=== PATIENT | male | born 1935 | race Caucasian/White ===

== ENCOUNTER → 2017-10-29 | Outpatient (CLI) | payer MEDICARE ==
[~2017-10-29] MED LIST: LIDOCAINE 2%/EPI 1:100,000 20 ML VIAL. IJ
== END | disposition home or self-care (01) ==
LOC: US 13:16
DX: E04.1 Nontoxic single thyroid nodule (principal)
CPT/HCPCS: 10022; 60300; 76942

== ENCOUNTER 2018-05-11 09:46 | Day surgery (SDC) | payer MEDICARE ==
[~2018-05-11] VITALS: Ht 180.3 cm; Wt 88.5 kg
[~2018-05-11 09:46] MED LIST changes: +AMLO10TA6 PO; +ASPI325T8 PO; +ATORVASTATIN CA80 MG PO; +BUPIVAC MPF-EPI 0.5%-1:200000 30 ML VIAL. ONE; +CLOP75TA PO; +FINA5TAB4 PO; +HYDR-2680 PO; +HYDROmorphone 2 MG/ML VIAL IV PRN; +IV RINGERS,LACTATED 1000ML 1,000 ML IV SCH; +LEVO50TA5 PO; +LIDOCAINE 1% PF 2 ML VIAL. ID PRN; -LIDOCAINE 2%/EPI 1:100,000 20 ML VIAL. IJ; +LISI-130 PO; +LISI-334 PO; +LISI1TAB5 PO; +METF500T16 PO; +METO25TA4 PO; +MORPHINE SULFATE 2 MG/ML VIAL. IV PRN; +NIAC500T PO; +OMEG-32 PO; +ONDANSETRON PF 4 MG/2 ML VIAL. IV PRN; +PROCHLORPERAZINE 10 MG/2 ML VIAL. IV PRN; +TERA10CA3 PO; +TERA5CAP3 PO; +VIT1TABL32 PO; +fentaNYL PF VIAL 100 MCG/2 ML VIAL IV PRN
[2018-05-11] MEDS ORDERED: SUCCINYLCHOLINE 200 MG/10 ML VIAL. ONE (12:14)
[2018-05-11] MEDS ORDERED: PROPOFOL 20 ML IV ONE (12:15)
[2018-05-11] MEDS ORDERED: SEVOFLURANE 16 TO 30 MINUTES. IH ONE (12:15)
[2018-05-11] MEDS ORDERED: ONDANSETRON PF 4 MG/2 ML VIAL. ONE (12:15)
[2018-05-11] MEDS ORDERED: DEXAMETHASONE SOD PHOS 20 MG/5 ML VIAL. ONE (12:15)
[2018-05-11] MEDS ORDERED: CHLORHEXIDINE 0.12% 15 ML MOUTHWASH. SWSP ONE (12:45)
--- NOTE | 2018-05-11 13:09 | PDOC4 ---
OPERATIVE NOTE Date: Date: May 11, 2018 Pre-Op Diagnosis: hyperkeratosis right soft palate Post-Op Diagnosis: hyperkeratosis right soft palate Procedure Performed: biopsy of right soft palate hyperkeratosis Surgeon: nory Anesthesia Type: BUD Blood Loss: <10ml Specimans Obtained: right soft palatal mucosa permanent specimen Findings: see dictation Complications: none Operative Note: biopsy of hyperkeratosis right soft palate closed with 3/0 CG BENJI AMBROSE DMD May 11, 2018 13:09
[2018-05-11 14:36] VITALS: BP 154/68
--- NOTE | 2018-05-11 18:50 | OP ---
DATE OF SURGERY: 05/11/2018 OPERATING SURGEON: Jimmie Ambrose DMD OPERATING SERVICE: technology architect. PREOPERATIVE DIAGNOSIS: Right soft palate hyperkeratosis. POSTOPERATIVE DIAGNOSIS: Right soft palate hyperkeratosis. PROCEDURES PERFORMED: Incision and biopsy of hyperkeratotic right palatal mucosa. BRIEF HISTORY: The patient was referred to our clinic by Dr. Merlos for evaluation of the right hyperkeratotic lesion on his right soft palate. It was approximately 6 x 6 mm in size. This lesion was located too far posteriorly to accommodate biopsy of this lesion under local anesthetic given his multiple comorbidities. The plan was for this biopsy to occur in the OR under anesthesia. A permit was obtained. The patient was scheduled for surgery. ESTIMATED BLOOD LOSS: Less than 5 mL. DRAINS PLACED: None. COMPLICATIONS: None. SPECIMEN SENT: One specimen for permanent evaluation was the right soft palate mucosa. DESCRIPTION OF PROCEDURE: After the history and physical was updated in the preoperative holding area, the patient was transported by the Anesthesia Service to the operating suite, placed in the supine position. General anesthesia was induced. An LMA was placed and secured. Moistened throat pack was placed. The surgery began with the administration of approximately 8 mL of 0.5% Marcaine with 1:200,000 epinephrine. Time was allowed for the anesthesia to take effect. A surgical timeout was performed. The surgery began with the #15 blade where a mucosal ellipse type incision was employed to excise the mucosa that was hyperkeratotic in the right soft palate. This was then reapproximated with primary closure with multiple interrupted 3-0 chromic gut sutures without complication. The area was found to be hemostatic. At this point, the oral cavity was lavaged. Moistened throat pack was removed and the patient was then returned to the care of anesthesia where he was awakened and the LMA was removed without complication. The patient was recovered in the OR, transported to the PACU in stable condition. JIMMIE AMBROSE DMD DR: JONATHON/jarred JOB#: [id number] / [id number]
--- NOTE | 2018-05-13 13:09 | PATHOLOGY ---
[facility] Accession Number: [id number] . 01 Material submitted: . RIGHT HYPERKERATOSIS SOFT PALATE . 01 Clinical history: . Hyperkeratosis of right soft palate . 02 Diagnosis: Soft palate, biopsy: - Squamous epithelium with hyperkeratosis and parakeratosis. ([facility]; 05/13/2018) QMS/05/13/2018 . 02 Electronically signed: . Gene Mayo MD, Pathologist NPI- [id number] . 01 Gross description: . Received in formalin labeled "Salvador Esposito, right hyperkeratosis soft palate," is an irregular segment of epithelial-covered soft tissue measuring 0.7 x 0.4 x 0.2 cm in greatest dimensions. The epithelial surface is irregularly contoured and pale white-mariee in appearance. The surgical margin is inked, and the specimen is bisected and submitted entirely in cassette A1. ([facility]; 05/12/2018) XDC/XDC . 02 Pathologist provided ICD-10: L85.8 . 02 CPT . 043661 Specimen Comment: A courtesy copy of this report has been sent to Specimen Comment: [phone], . Specimen Comment: Report sent to / DR ALONSO Performed at: 01 [facility] [address], [place] [id number] MD Gamal Greer MD Phone: [phone] Performed at: 02 [facility] [address] [place], [place] [id number] MD Alexander Ramires MD Phone: [phone]
== END 2018-05-11 15:03 | disposition home or self-care (01) ==
LOC: SURG 09:46
PROVIDERS: ATTEND Dentist Oral and Maxillofacial Surgery
DX: K13.79 Other lesions of oral mucosa (principal); E03.9 Hypothyroidism, unspecified; G47.33 Obstructive sleep apnea (adult) (pediatric); I10 Essential (primary) hypertension; E11.9 Type 2 diabetes mellitus without complications; N40.0 Benign prostatic hyperplasia without lower urinary tract symptoms; Z86.73 Personal history of transient ischemic attack (TIA), and cerebral infarction without residual deficits; Z91.041 Radiographic dye allergy status; M19.90 Unspecified osteoarthritis, unspecified site; Z79.82 Long term (current) use of aspirin; Z79.84 Long term (current) use of oral hypoglycemic drugs; Z79.899 Other long term (current) drug therapy; Z72.89 Other problems related to lifestyle
CPT/HCPCS: 42100; 82962; 88305; A7015; J0690; J1100; J2405; J2704; J3490; J0330

== ENCOUNTER → 2019-02-01 | Day surgery (SDC) | payer MEDICARE ==
[~2019-02-01] MED LIST changes: -AMLO10TA6 PO; +AMLO10TA8 PO; -BUPIVAC MPF-EPI 0.5%-1:200000 30 ML VIAL. ONE; -LIDOCAINE 1% PF 2 ML VIAL. ID PRN; +PROPOFOL 40 ML IV ONE
[2019-02-01 08:10] VITALS: BP 145/67
== END ==
LOC: ENDOS 05:50
PROVIDERS: ATTEND Internal Medicine Gastroenterology
DX: K29.50 Unspecified chronic gastritis without bleeding (principal); K57.30 Diverticulosis of large intestine without perforation or abscess without bleeding; K64.0 First degree hemorrhoids; D50.0 Iron deficiency anemia secondary to blood loss (chronic); E11.9 Type 2 diabetes mellitus without complications; K21.9 Gastro-esophageal reflux disease without esophagitis; I10 Essential (primary) hypertension; E78.00 Pure hypercholesterolemia, unspecified; E03.9 Hypothyroidism, unspecified; F15.90 Other stimulant use, unspecified, uncomplicated; Z85.850 Personal history of malignant neoplasm of thyroid; Z72.89 Other problems related to lifestyle; Z87.891 Personal history of nicotine dependence; Z79.82 Long term (current) use of aspirin; Z79.84 Long term (current) use of oral hypoglycemic drugs; Z95.1 Presence of aortocoronary bypass graft
CPT/HCPCS: 43235; 45378; J2704